=== PATIENT | male | born 1945 | race Caucasian/White ===

== ENCOUNTER 2020-08-02 10:42 | Emergency (ER) | payer MEDICARE ==
[2020-08-02 13:00] LABS: HEMOGLOBIN 14.7 gm/dl (14.0-17.5); RED BLOOD COUNT 4.67 M/UL (4.20-5.50); WHITE BLOOD COUNT 9.1 K/UL (4.5-11.0)
== END 2020-08-02 18:45 | disposition short-term general hospital (02) ==
LOC: ER1 10:42
PROVIDERS: Emergency Medicine
DX: D49.6 Neoplasm of unspecified behavior of brain (principal); I10 Essential (primary) hypertension; Z20.822 Contact with and (suspected) exposure to COVID-19
CPT/HCPCS: 70450; 71045; 72125; 80053; 83735; 85025; 93005; 96374; 99285; J1100; U0002